=== PATIENT | male | born 1995 | race Caucasian/White ===

== ENCOUNTER 2020-06-26 23:48 | Emergency (ER) | payer BC, OTHER ==
[2020-06-27] MEDS ORDERED: BENADRYL 25MG C25 MG PO (00:32)
[2020-06-27] MEDS ORDERED: MEDROL DOSEPAK 24 MG PO (00:32)
[2020-06-27] MEDS ORDERED: PEPCID40 MG PO (00:32)
== END 2020-06-27 01:29 | disposition home or self-care (01) ==
LOC: ER1 23:48
DX: L50.9 Urticaria, unspecified (principal); F17.210 Nicotine dependence, cigarettes, uncomplicated; Z20.822 Contact with and (suspected) exposure to COVID-19
CPT/HCPCS: 96372; 99283; J1100; U0002

== ENCOUNTER → 2021-11-20 | Outpatient (CLI) | payer BC ==
[~2021-11-20] MED LIST: BENADRYL 25MG C25 MG PO; MEDROL DOSEPAK 24 MG PO; PEPCID40 MG PO
== END ==
LOC: EXRD 11-17 09:30
DX: R10.13 Epigastric pain (principal); R16.1 Splenomegaly, not elsewhere classified
CPT/HCPCS: 76700